=== PATIENT | female | born 2000 | race Caucasian/White ===

== ENCOUNTER 2018-11-04 08:41 | Emergency (ER) | payer OTHER ==
[~2018-11-04] VITALS: Ht 160 cm; Wt 61.2 kg
--- OUTSIDE RECORDS SUMMARY | 2018-11-04 08:46 | XMS REPORT | Continuity of Care Document ---
Author Organization Unknown Address Unknown Allergies There is no data. Medications There is no data. Problems There is no data. Procedures There is no data. Results There is no data. Encounters ACCT No. Visit Date/Time Discharge Status Pt. Type Provider Facility Loc./Unit Complaint [id number] 10/24/2018 09:20:00 10/24/2018 23:59:59 [facility] Outpatient BRIANNA SCHWARTZ [facility] [address] 09/04/2012 20:12:35 [facility]
[2018-11-04] MEDS ORDERED: LIDOCAINE/EPI 2% 1:100,00 (XYLOCAINE) 20 ML VIAL ONE (09:10)
--- NOTE | 2018-11-04 09:55 | ED General ---
General Chief Complaint: General Problems/Pain Stated Complaint: TOP LIP AND GUMS SWOLLEN Nursing Triage Note: Was seen at urgent care for gum and lip swelling two days ago, was put on antibiotics and steroids. HR was also elevated at that time and an EKG was done. Swelling is getting worse and HR is 150 on arrival to ED. Nursing Sepsis Screen: No Definite Risk History of Present Illness Date Seen by Provider: November 04, 2018 Time Seen by Provider: 08:50 This is a 18-year-old female here for swelling of the upper lip worsening over the last 4 days. She was seen at urgent care and was given a ceftriaxone injection and was started on Bactrim, she was also given a steroid, but the swelling has gotten worse. No difficulty swallowing or breathing, no shortness of breath or coughing or chest pain. It is also noted the patient is tachycardic upon arrival, this was investigated at the urgent care with an EKG and blood tests, patient actually has a blood count, chemistry, thyroid panel with her that are all normal. She wears an apple watch which measures her heart rate and apparently she has had elevated heart rate since June. She was started on a TCA in July, after her heart rate had been noticed to be elevated. Allergies and Home Medications Allergies Coded Allergies: No Known Drug Allergies (Unverified , 11/04/18) Patient Home Medication List Home Medication List Reviewed: Yes Review of Systems Review of Systems Constitutional: no symptoms reported EENTM: see HPI Respiratory: no symptoms reported Cardiovascular: no symptoms reported Gastrointestinal: no symptoms reported Genitourinary: no symptoms reported Musculoskeletal: no symptoms reported Skin: no symptoms reported Hematologic/Lymphatic: No Symptoms Reported Immunological/Allergic: no symptoms reported Past Mtkrtqa-Vlizvz-Ioyspi Hx Past Med/Social Hx: Reviewed Nursing Past Med/Soc Hx Patient Social History Alcohol Use: Occasionally Uses Recreational Drug Use: No Recent Foreign Travel: No Contact w/Someone Who Travel: No Recent Infectious Disease Expo: No Recent Hopitalizations: No Physical Abuse: No Sexual Abuse: No Mistreated: No Fear: No Seasonal Allergies Seasonal Allergies: No Past Medical History Surgeries: Yes Appendectomy Respiratory: No Cardiac: No Neurological: Yes Headaches /Migraines Genitourinary: No Gastrointestinal: No Musculoskeletal: No Endocrine: Yes (hypoglycemia) Cancer: No Psychosocial: No Integumentary: No Blood Disorders: No Adverse Reaction/Blood Tranf: No Physical Exam Vital Signs Vital Signs - First Documented 11/04/18 08:53 Temp 99.3 Pulse 148 Resp 18 B/P (MAP) 138/82 (100) Pulse Ox 97 Capillary Refill : Less Than 3 Seconds Height, Weight, BMI Height: 5'3.00" Weight: 135lbs. oz. 61.306902ez; BMI Method:Stated General Appearance: No Apparent Distress (no visible discomfort) Eyes: Bilateral Eye PERRL, Bilateral Eye EOMI HEENT: Other (there is some swelling of the upper lip approximately at the midline. In the upper gingival sulcus there is less than 1 mm of swelling and fluctuance with mild tenderness) Neck: Supple Respiratory: Lungs Clear Cardiovascular: Normal Peripheral Pulses, Tachycardia (regular) Gastrointestinal: Non Tender, Soft Neurologic/Psychiatric: Alert, Oriented x3; No Abnormal Gait Skin: Warm/Dry Procedures/Interventions I&D : Site: upper gingival salt is just to the right of midline Blade Size: 11 Progress Verbal consent was obtained from the patient. Using an insulin needle less than 1 mL of 2% lidocaine with epinephrine was injected into the gingival mucosa. Using a 11 blade scalpel a small stab incision was made with immediate drainage of a moderate amount of pus. Minimal bleeding upon completion of procedure. Patient tolerated the procedure very well without observed complications. Progress/Results/Core Measures Suspected Sepsis Recent Fever Within 48 Hours: No Infection Criteria Present: Suspected New Infection New/Unexplained Altered Menta: No Sepsis Screen: No Definite Risk SIRS Temperature:99.3 Pulse: 148 Respiratory Rate: 18 Blood Pressure 138 /82 Mean: 100 Results/Orders Lab Results Laboratory Tests Test 11/04/18 09:42 Range/Units Urine Test NEGATIVE NEGATIVE My Orders Orders - GUCCI MARCELO DO Ekg Tracing (11/04/18 09:04) Hcg,Qualitative Urine (11/04/18 09:04) Lidocaine/Epi 2% 1:100,000 (Xylocaine/Ep (11/04/18 09:10) Medications Given in ED Current Medications Medications Dose Ordered Sig/Lisa Route Start Time Stop Time Status Last Admin Dose Admin Lidocaine/ Epinephrine 20 ml STK-MED ONCE .ROUTE 11/04/18 09:10 11/04/18 09:13 DC 11/04/18 09:29 20 ML Vital Signs/I&O 11/04/18 08:53 Temp 99.3 Pulse 148 Resp 18 B/P (MAP) 138/82 (100) Pulse Ox 97 Capillary Refill : Less Than 3 Seconds Blood Pressure Mean: 100 Progress Note : Progress Note Patient has an apparently uncomplicated dental abscess. I drained this without complication. Patient tolerated the procedure very well. She also was tachycardic but this has been going on since June. She had labs drawn for the same issue just within the last 4 days and they were all normal. I added a test today. She has no signs of CHF like edema or crackles on respiratory exam, no chest pain, no dyspnea. Given that she has been measuring elevated heart rates for 5 months at this point I think it is reasonable for her to follow-up as an outpatient although I did impress upon patient and mom that this should be done as soon as possible. I was able to speak with Dr. Sebastian from cardiology just after 10 AM, he recommended that patient would need to calm off of her TCA, with regard to the prolonged QT interval he stated that as long as patient does not have a history of sudden cardiac in the family that she could be discharged, again coming off of her TCA medication. Pt already has decreased her dose since her visit to half her normal dose. Several family members take metoprolol for heart rate control but there is no history of sudden cardiac , and patient has had syncope in the past but this was not recent and was related to hypoglycemia. I also recommended that they return to this or the nearest emergency Department immediately for any worsening of her condition. ECG EKG : Comment 0 916: Sinus tachycardia rate of 148. Right word axis with early precordial R- wave progression. Nonspecific anterolateral T-wave flattening in the precordial leads. QTC 596, [place] 103, QRS 88. Departure Impression Primary Impression: Dental abscess Additional Impressions: Sinus tachycardia Prolonged QT interval Disposition: 01 HOME, SELF-CARE Condition: Stable Departure-Patient Inst. Referrals: BRIANNA SCHWARTZ APRN (PCP) Primary Care Physician Jeannie CRUZ MD Patient Instructions: Sinus Tachycardia (DC), Tooth Abscess (DC) GUCCI MARCELO DO November 04, 2018 09:55
[2018-11-04 10:39] VITALS: BP 125/84
== END 2018-11-04 10:38 | disposition home or self-care (01) ==
LOC: ER FS 08:43
DX: K04.7 Periapical abscess without sinus (principal); R00.0 Tachycardia, unspecified; R94.31 Abnormal electrocardiogram [ECG] [EKG]; G43.909 Migraine, unspecified, not intractable, without status migrainosus; Z90.49 Acquired absence of other specified parts of digestive tract
CPT/HCPCS: 84703; 93005

== ENCOUNTER → 2018-11-21 | Outpatient (CLI) | payer OTHER | LOC: CARD 10:22 | PROVIDERS: ATTEND Internal Medicine Interventional Cardiology | DX: Z53.9 Procedure and treatment not carried out, unspecified reason (principal) ==